=== PATIENT | male | born 1980 | race Two or more races ===

== ENCOUNTER 2024-01-26 17:35 | Emergency (ER) | payer MEDICAID ==
[~2024-01-26] VITALS: Ht 165.1 cm; Wt 59.1 kg
[2024-01-26 17:51] VITALS: TEMP 98.3
[2024-01-26] MEDS: SODIUM CHLORIDE 0.9% 1,000 ML IV ONE (19:23)
[2024-01-26] MEDS: CefTRIAXone 1 GM/DEXTROSE 50 ML IV ONE (19:23)
[2024-01-26 19:29] LABS: BASOPHILS % (AUTO) 0.2 % (0.0-2.0); EOSINOPHILS % (AUTO) 2.7 % (1.0-6.0); HEMATOCRIT 39.8 % (41-53); HEMOGLOBIN 13.8 g/dL (13.5-17.5); LYMPHOCYTES # (AUTO) 0.9 K/uL (1.0-4.8); LYMPHOCYTES % (AUTO) 12.2 % (22.0-44.0); MEAN CORPUSCULAR HEMOGLOBIN 32.3 pg (26.0-34.0); MEAN CORPUSCULAR HGB CONC 34.7 G/dL (31.0-37.0); MEAN CORPUSCULAR VOLUME 93 fL (80-100); MONOCYTES # (AUTO) 0.8 K/uL (0.1-1.0); NEUTROPHILS # (AUTO) 5.4 K/uL (1.8-7.7); NEUTROPHILS % (AUTO) 73.9 % (40.0-70.0); PLATELET COUNT (AUTO) 290 K/uL (150-450); RED BLOOD CELL COUNT(AUTO) 4.27 MIL/uL (4.50-5.90); RED CELL DISTRIBUTION WIDTH 12.9 % (11.5-14.5); WHITE BLOOD COUNT (AUTO) 7.3 K/uL (4.5-11.0)
[2024-01-26 19:35] LABS: ANION GAP 13 mmol/L (8-16); CALCIUM, TOTAL 9.5 mg/dL (8.8-10.5); CARBON DIOXIDE 28 mmol/L (22-29); CHLORIDE 93 mmol/L (98-107); CREATININE 0.58 mg/dL (0.60-1.30); GLOMERULAR FILTR. RATE CALC > 60 mL/min (>60); GLUCOSE,RANDOM 307 mg/dL (70-110); POTASSIUM 3.8 mmol/L (3.5-5.1); SODIUM SERUM 134 mmol/L (136-145); UREA NITROGEN, BLOOD 11 mg/dL (7-18)
[2024-01-26 19:41] LABS: ALANINE AMINOTRANSFERASE 44 U/L (12-78); ALKALINE PHOSPHATASE 110 U/L (46-116); ASPARTATE AMINOTRANSFERASE 24 U/L (15-37); BILIRUBIN,TOTAL 0.6 mg/dL (0.1-1.0)
[2024-01-26] MEDS ORDERED: PRED-554 PO (20:46)
[2024-01-26] MEDS ORDERED: CEPH-558 PO (20:46)
[2024-01-26] MEDS: PredniSONE 20 MG TABLET PO ONE (20:54)
[2024-01-26] MEDS ORDERED: METF-1211 PO (21:47)
[2024-01-26] MEDS ORDERED: AMLO-257 PO (21:47)
[2024-01-26] MEDS: AmLODIPine BESYLATE 5 MG TABLET PO ONE (22:00)
[2024-01-26 22:30] VITALS: BP 154/93; PULSE 88; RESP 17
== END 2024-01-26 22:55 | disposition home or self-care (01) ==
LOC: EMS 17:35
DX: I10 Essential (primary) hypertension (principal); E11.9 Type 2 diabetes mellitus without complications
CPT/HCPCS: 99284; 96365; 80053; 82962; 83605; 85025; 87040; 36415; 73070; J0696; J7512; J7030

== ENCOUNTER 2024-04-10 10:52 | Emergency (ER) | payer SELFPAY ==
[~2024-04-10] VITALS: Ht 162.6 cm; Wt 61.4 kg
[~2024-04-10 10:52] MED LIST: AMLO-257 PO; CEPH-558 PO; METF-1211 PO; PRED-554 PO
[2024-04-10 11:11] VITALS: TEMP 98
[2024-04-10] MEDS ORDERED: LOSA-382 PO (13:04)
[2024-04-10] MEDS: ACETAMINOPHEN 500 MG TABLET PO ONE (13:06)
[2024-04-10 13:44] LABS: EOSINOPHILS % (AUTO) 1.4 % (1.0-6.0); HEMATOCRIT 36.1 % (41-53); HEMOGLOBIN 12.5 g/dL (13.5-17.5); LYMPHOCYTES # (AUTO) 1.2 K/uL (1.0-4.8); LYMPHOCYTES % (AUTO) 12.5 % (22.0-44.0); MEAN CORPUSCULAR HEMOGLOBIN 31.8 pg (26.0-34.0); MEAN CORPUSCULAR HGB CONC 34.6 G/dL (31.0-37.0); MEAN CORPUSCULAR VOLUME 92 fL (80-100); MONOCYTES # (AUTO) 1.1 K/uL (0.1-1.0); MONOCYTES % (AUTO) 11.6 % (2.0-9.0); NEUTROPHILS # (AUTO) 6.8 K/uL (1.8-7.7); NEUTROPHILS % (AUTO) 73.5 % (40.0-70.0); PLATELET COUNT (AUTO) 424 K/uL (150-450); RED BLOOD CELL COUNT(AUTO) 3.92 MIL/uL (4.50-5.90); RED CELL DISTRIBUTION WIDTH 12.3 % (11.5-14.5); WHITE BLOOD COUNT (AUTO) 9.2 K/uL (4.5-11.0)
[2024-04-10 14:01] LABS: ANION GAP 14 mmol/L (8-16); CALCIUM, TOTAL 9.3 mg/dL (8.8-10.5); CARBON DIOXIDE 24 mmol/L (22-29); CHLORIDE 94 mmol/L (98-107); CREATININE 0.68 mg/dL (0.60-1.30); GLOMERULAR FILTR. RATE CALC > 60 mL/min (>60); GLUCOSE,RANDOM 380 mg/dL (70-110); POTASSIUM 4.7 mmol/L (3.5-5.1); SODIUM SERUM 132 mmol/L (136-145); UREA NITROGEN, BLOOD 15 mg/dL (7-18)
[2024-04-10 14:12] VITALS: BP 140/75; PULSE 77; RESP 18
[2024-04-10] MEDS ORDERED: ACET-3385 PO (15:20)
== END 2024-04-10 15:27 | disposition home or self-care (01) ==
LOC: EMS 10:52
DX: E11.9 Type 2 diabetes mellitus without complications (principal); M79.89 Other specified soft tissue disorders; I10 Essential (primary) hypertension
CPT/HCPCS: 80048; 85025; 93971; 99284